=== PATIENT | female | born 1955 | race Caucasian/White ===

== ENCOUNTER 2020-05-01 13:26 | Outpatient (CLI) | payer MEDICARE, SELFPAY ==
--- NOTE | 2020-05-01 13:41 | XR_ITS ---
WS: [id number] Lumbar spine, 3 views, 05/01/2020 Clinical Data: CHRONIC MID BACK PAIN/DORSALGIA Comparison: None. Findings: No compression fractures or subluxation is seen. As minimal disc space narrowing at L4-L5.. The trans verse processes and SI joints are normal. There is minimal anterior osteoarthritic spurring from L1 through L5. There are right upper quadrant clips from a cholecystectomy. XR/XR lumbar spine 2-3V* [id number] Impression: 1. Minimal degenerative disc narrowing at L4-L5. 2. Minimal anterior osteoarthritic spurring from L1 through L5.
--- NOTE | 2020-05-01 13:41 | XR_ITS ---
WS: [id number] Cervical spine, 5 views including oblique images, 05/01/2020 Clinical Data: CHRONIC MID BACK PAIN Comparison: None. Findings: No compression fractures are seen. The disc heights are normal. There is no prevertebral so ft tissue swelling. The odontoid is unremarkable. The soft tissues of the neck and the lung apices ar e normal. The oblique films show no neural foraminal encroachment. XR/XR cervical spine 4-5V [id number] Impression: Negative cervical spine.
--- NOTE | 2020-05-01 13:41 | XR_ITS ---
WS: [id number] Right shoulder, 2 views, 05/01/2020 Clinical Data: BURSITIS OF R SHOULDER Comparison: None. Findings: There is a calcification in the intertubercular region overlying the greater tuberosity. This calcifi cation probably represents calcific bursitis or tendinitis. There are no fractures or dislocations. The AC joint is normal. The adjacent right clavicle, scapula and ribs are unremarkable. XR/XR shoulder RT min 2V* [id number] Impression: Calcific bursitis or tendinitis of the right shoulder.
--- NOTE | 2020-05-01 13:41 | XR_ITS ---
WS: [id number] Chest 2 views, 05/01/2020 Clinical Data: CHRONIC MID BACK PAIN/DORSALGIA Comparison: None. Findings: No nodules, masses or effusions are seen. The heart is normal. The pulmonary vascularity is not increased. No pneumonia or pneumothorax is seen. There are clips in the right upper quadrant fro m a cholecystectomy. XR/XR chest 2V* [id number] Impression: Negative chest.
== END 2020-05-01 13:27 | disposition home or self-care (01) ==
PROVIDERS: PCP Nurse Practitioner; Visit Provider Nurse Practitioner
DX: M75.51 Bursitis of right shoulder (principal); M54.9 Dorsalgia, unspecified; G89.29 Other chronic pain
CPT/HCPCS: 71046; 72050; 72100; 73030

== ENCOUNTER 2022-11-26 12:06 | Outpatient (CLI) | payer MEDICARE, SELFPAY ==
--- NOTE | 2022-11-26 12:24 | XR_ITS ---
WS: [id number] XR lumbar spine 6V w f/e [id number] REASON FOR EXAM: SCIATICA/DORSALGIA FINDINGS: Minimal rotatory scoliosis convex left. Normal lumbar lordosis. No significant vertebral body abnormality. Mild to moderate narrowing of the intervertebral disc spaces at L1/L2, L3-L4, L4-L5, and L5-S1. No spondylolysis. No significant neutral spondylolisthesis. Mild degenerative changes in the facet joints L4-S1. No abnormal vertebral body movement with flexion and extension. IMPRESSION: Degenerative spondylosis of the lumbar spine which is relatively stable compared to 05/01/2020.
== END 2022-11-26 12:07 | disposition home or self-care (01) ==
PROVIDERS: PCP Nurse Practitioner; Visit Provider Nurse Practitioner Family
DX: M47.816 Spondylosis without myelopathy or radiculopathy, lumbar region (principal); M54.40 Lumbago with sciatica, unspecified side
CPT/HCPCS: 72114

== ENCOUNTER 2023-02-02 13:57 | Outpatient (CLI) | payer MEDICARE, SELFPAY ==
--- NOTE | 2023-02-02 14:04 | MR_ITS ---
WS: [id number] MRI LUMBAR SPINE NONCONTRAST HISTORY: CELLULITIS OF L LOWER LIMB/LOW BACK PAIN/SCIATICA COMPARISON: None available. TECHNIQUE: Sagittal and axial multisequence imaging is submitted. T2-3 Central disc protrusion contacting the ventral thoracic cord. Normal lumbar alignment with no compression fractures or marrow edema. Mild disc space narrowing and desiccation at L4-5. Conus terminates normally at L1. L1-L2: Mild disc bulging. No stenosis. L2-L3: Mild annular disc bulging encroaching upon the ventral thecal sac. Slightly greater disc conta ct on the traversing LEFT L4 nerve root. L3-L4: Mild annular disc bulging. Ligamentum flavum and facet joint arthritis. Mild central, bilatera l subarticular recess encroachment. Most significant encroachment upon the traversing L4 nerve roots. L4-L5: Annular disc bulging. There is a large RIGHT paracentral disc protrusion deforming the RIGHT l ateral thecal sac and displacing the traversing RIGHT L5 nerve root posteriorly. Disc is slightly ext ruded and extends caudad to the disc level. Lesser disc contact on the traversing LEFT L5 nerve root. Mild central stenosis. L5-S1: Mild disc bulging. Very minimal disc contact on the RIGHT S1 nerve root. Paravertebral soft tissues are normal. IMPRESSION: 1. L4-5: Large RIGHT paracentral disc protrusion extending into the LEFT lateral recess and displacin g the traversing RIGHT L5 nerve root. Slightly less contact on the LEFT L5 nerve root. Mild central s tenosis. 2. L3-4: Mild central and bilateral subarticular recess stenosis. Mild disc encroachment upon the tra versing L4 nerve roots 3. Central disc protrusion at T2-3.
== END 2023-02-02 13:58 | disposition home or self-care (01) ==
LOC: RAD 13:58
PROVIDERS: PCP Nurse Practitioner; Visit Provider Nurse Practitioner Family
DX: L03.116 Cellulitis of left lower limb (principal); M51.16 Intervertebral disc disorders with radiculopathy, lumbar region; R20.0 Anesthesia of skin; M48.061 Spinal stenosis, lumbar region without neurogenic claudication; M51.24 Other intervertebral disc displacement, thoracic region
CPT/HCPCS: 72148

== ENCOUNTER → 2023-03-04 07:59 | Outpatient (BNVA) | payer MEDICARE, SELFPAY | PROVIDERS: PCP Nurse Practitioner; Visit Provider Orthopaedic Surgery | DX: M48.062 Spinal stenosis, lumbar region with neurogenic claudication (principal); M51.26 Other intervertebral disc displacement, lumbar region | CPT/HCPCS: 72110; 99204 ==

== ENCOUNTER 2023-03-04 09:16 | Outpatient (CLI) | payer MEDICARE, SELFPAY ==
--- NOTE | 2023-03-04 09:26 | XR_ITS ---
WS: [id number] Exam: XR foot LT min 3V* [id number] Date/Time of Exam: 03/04/2023 9:26 AM Reason For Exam: Left foot pain Exam: XR foot LT min 3V* [id number] Date/Time of Exam: 03/04/2023 9:26 AM Reason For Exam: Left foot pain Findings: The foot was examined in multiple views and reveals no fractures or displacements of bone. No bony a nomalies are noted. The bony elements are in adequate alignment. The joint spaces are smooth and eq uidistant. IMPRESSION: Negative LEFT foot.
== END 2023-03-04 09:17 | disposition home or self-care (01) ==
PROVIDERS: PCP Nurse Practitioner Family; Visit Provider Nurse Practitioner Family
DX: M79.672 Pain in left foot (principal)
CPT/HCPCS: 73630

== ENCOUNTER 2023-03-15 15:15 | Outpatient (CLI) | payer MEDICARE, SELFPAY ==
--- NOTE | 2023-03-15 15:21 | XR_ITS ---
WS: [id number] SCREENING DEXA SCAN [facility] CLINICAL INFORMATION: ASYMPTOMATIC MENOPAUSAL STATE COMPARISON: None. FINDINGS: The L1-L4 bone mineral density measures 1.172 g/cm2. This corresponds to a T score score of -0.1 and Z score of 1.4. Left femoral neck bone mineral density measures 0.934 g/cm2. This corresponds to a T score of -0.6 an d Z score of 0.7. Right femoral neck bone mineral density measures 0.831 g/cm2. This corresponds to a T score -1.4of an d Z score of -0.1. Mean femoral neck bone mineral density measures 0.882 g/cm2. This corresponds to a T score of -1.0 an d Z score of 0.3. IMPRESSION: Normal bone mineralization lumbar spine. Osteopenia femoral necks at the lower end of the range Patient's FRAX calculated 10 year probability for major osteoporotic fracture is 9.8% and osteoporoti c hip fracture is 1.3%.
== END 2023-03-15 15:16 | disposition home or self-care (01) ==
LOC: RAD 15:15
PROVIDERS: PCP Nurse Practitioner Family; Visit Provider Nurse Practitioner Family
DX: Z78.0 Asymptomatic menopausal state (principal); M85.88 Other specified disorders of bone density and structure, other site
CPT/HCPCS: 77080

== ENCOUNTER → 2023-04-01 09:49 | Outpatient (BNVA) | payer MEDICARE, SELFPAY | PROVIDERS: PCP Nurse Practitioner Family; Visit Provider Podiatrist Foot & Ankle Surgery | DX: M72.2 Plantar fascial fibromatosis; M24.572 Contracture, left ankle | CPT/HCPCS: 99203 ==

== ENCOUNTER → 2023-04-22 09:55 | Outpatient (BNVA) | payer MEDICARE, SELFPAY | PROVIDERS: PCP Nurse Practitioner Family; Visit Provider Podiatrist Foot & Ankle Surgery | DX: M72.2 Plantar fascial fibromatosis (principal); M24.572 Contracture, left ankle | CPT/HCPCS: 20550; J1100; J3301 ==

== ENCOUNTER 2023-09-27 14:33 | Outpatient (CLI) | payer MEDICARE, SELFPAY ==
--- NOTE | 2023-09-27 14:38 | MM_ITS ---
WS: [email or web address] BILATERAL 3D TOMOSYNTHESIS DIGITAL SCREENING MAMMOGRAPHY WITH CAD CLINICAL INFORMATION: SCREENING HISTORY: Screening mammogram. No current complaints. COMPARISON: 2015 TECHNIQUE: Bilateral CC and MLO views. FINDINGS: Scattered fibroglandular densities bilaterally. No suspicious focal mass, asymmetry, calcifications, or architectural distortion. No evidence of malignancy. Vascular calcification. Numerous tiny calcifi cations upper outer breast bilaterally stable since 2015. MM/[place] [id number] IMPRESSION: BI-RADS: 2-Benign FOLLOW UP: 1 Year Follow-up Recommend return to annual screening mammography.
== END 2023-09-27 14:34 | disposition home or self-care (01) ==
LOC: RAD 14:33
PROVIDERS: PCP Nurse Practitioner Family; Visit Provider Nurse Practitioner Family
DX: Z12.31 Encounter for screening mammogram for malignant neoplasm of breast (principal); R92.323 Mammographic fibroglandular density, bilateral breasts; R92.1 Mammographic calcification found on diagnostic imaging of breast
CPT/HCPCS: 77063; 77067

== ENCOUNTER 2024-06-05 13:28 | Outpatient (CLI) | payer MEDICARE, SELFPAY ==
--- NOTE | 2024-06-05 13:32 | XR_ITS ---
WS: [id number] Exam: XR KUB [id number] Date/Time of Exam: 06/05/2024 1:44 PM Reason For Exam: HEMATURIA, UTI SITE NOT SPECIFIED No bowel obstruction or pneumoperitoneum. No sign of organ enlargement. Signs of prior cholecystectomy. Regional bony structures appear normal. Pelvic calcifications noted most likely phleboliths. XR/XR KUB [id number] IMPRESSION: 1. No acute abdominal finding.
== END 2024-06-05 13:29 | disposition home or self-care (01) ==
LOC: RAD 13:30
PROVIDERS: PCP Nurse Practitioner Family; Visit Provider Nurse Practitioner Family
DX: R31.9 Hematuria, unspecified (principal); N39.0 Urinary tract infection, site not specified; R93.89 Abnormal findings on diagnostic imaging of other specified body structures; Z90.49 Acquired absence of other specified parts of digestive tract
CPT/HCPCS: 74018

== ENCOUNTER → 2025-03-07 16:13 | Outpatient (BNVA) | payer MEDICARE, SELFPAY | PROVIDERS: PCP Nurse Practitioner Family; Visit Provider Nurse Practitioner | DX: L02.91 Cutaneous abscess, unspecified (principal) | CPT/HCPCS: 87070 ==